=== PATIENT | female | born 1970 | race Caucasian/White ===

== ENCOUNTER 2020-01-11 09:36 | Emergency (ER) | payer OTHER, BC ==
[2020-01-11] MEDS ORDERED: Albuterol/Ipratropium 3.0-0.5 MG/3 ML Neb Soln NEB PRN (10:28)
--- NOTE | 2020-01-11 10:32 | EDM.PDOC ---
ED HPI GENERAL MEDICAL PROBLEM - General Chief Complaint: Respiratory Problem Stated Complaint: SOB/HAD COVID A MONTH AGO Time Seen by Provider: 01/11/20 10:17 Source of Information: Reports: Patient History Limitations: Reports: No Limitations - History of Present Illness INITIAL COMMENTS - FREE TEXT/NARRATIVE: 49-year-old female presents to the ED due to worsening shortness of breath with audible wheezing over the last 3 to 4 days. She reports that she proved to be Covid positive on 11 December. This to be a month ago today. She had mild form of illness with minimal cough at that time. Minimal sore throat. Never did develop any diarrhea. Had mild anorexia. 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 He has been tested almost twice weekly due to the outbreak of the virus where she is employed and is proved to be Covid negative. Her also had COVID-19 the same time she did. Denies any sputum production. Short of breath on minimal exertion for the last 2 days. Feels like she is getting worse. No improvement with handheld albuterol neb treatments all day yesterday. Onset: Gradual Onset Date: 01/09/20 Duration: Day(s):, Getting Worse Location: Reports: Chest (As of breath with audible wheezing.) Quality: Reports: Other Severity: Moderate Improves with: Reports: Rest Worsens with: Reports: Other (Apnea with audible wheezing) Context: Reports: Other. Denies: Activity, Exercise ( worse with minimal exertion.), Lifting, Sick Contact, Trauma Associated Symptoms: Reports: Malaise, Shortness of Breath. 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) (Handheld albuterol treatments with minimal relief.) - Related Data Allergies Allergy/AdvReac Type Severity Reaction Status Date / Time No Known Allergies Allergy Verified 01/11/20 10:46 Home Meds: Home Meds ALPRAZolam [Xanax] 0.25 mg PO ASDIRECTED PRN 01/11/20 [History] Furosemide [Lasix] 20 mg PO DAILY #14 tab 01/11/20 [Rx] Loratadine [Claritin] 25 mg PO DAILY 01/11/20 [History] Metoprolol Succinate [Toprol XL] 25 mg PO DAILY 01/11/20 [History] Omeprazole 40 mg PO DAILY 01/11/20 [History] Topiramate [Topamax] 50 mg PO DAILY 01/11/20 [History] buPROPion HCL [Wellbutrin Xl] 300 mg PO DAILY 01/11/20 [History] predniSONE [Prednisone] 20 mg PO BID #15 tablet 01/11/20 [Rx] Past Medical History HEENT History: Reports: Impaired Vision Other HEENT History: wears glasses 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 Denies: Fever, Chills HEENT: Reports: No Symptoms Respiratory: Reports: Shortness of Breath, Wheezing. Denies: Pleuritic Chest Pain, Cough Cardiovascular: Reports: Dyspnea on Exertion. Denies: Chest Pain (Audible wheezing.), Blood Pressure Problem, Claudication, Edema, Orthopnea, Other Endocrine: Reports: Fatigue GI/Abdominal: Reports: No Symptoms : Reports: No Symptoms Musculoskeletal: Reports: No Symptoms Skin: Reports: No Symptoms Neurological: Reports: No Symptoms Psychiatric: Reports: No Symptoms Hematologic/Lymphatic: Reports: No Symptoms Immunologic: Reports: No Symptoms ED EXAM, GENERAL - Physical Exam Exam: See Below Exam Limited By: No Limitations General Appearance: Alert, WD/WN, No Apparent Distress, Other (Temperature is 36.2 and she does feel afebrile on exam. Heart rate 72 and sinus respiratory to 20 with O2 sats of only 93% room air. BP is 145/78.) Eye Exam: Bilateral Eye: Normal Inspection, PERRL Throat/Mouth: Normal Inspection, Normal Lips, Normal Teeth, Normal Oropharynx Head: Atraumatic, Normocephalic Neck: Normal Inspection, Supple, Non-Tender, Full Range of Motion. No: Lymphadenopathy (L), Lymphadenopathy (R) Respiratory/Chest: No Accessory Muscle Use, Respiratory Distress (Tachypnea at r est.), Decreased Breath Sounds (Minimally decreased breath sounds to lung bases.), Wheezing (Diffuse wheezing throughout all lung jim.). No: Lungs Clear, Normal Breath Sounds Cardiovascular: Normal Peripheral Pulses, Regular Rate, Rhythm, No Edema, No Gallop, No Murmur, No Rub Peripheral Pulses: 2+: Posterior Tibial (L), Posterior Tibial (R), Dorsalis Pedis (L), Dorsalis Pedis (R), 3+: Carotid (L), Carotid (R) GI/Abdominal: Normal Bowel Sounds, Soft, Non-Tender, No Organomegaly, No Abnormal Bruit, No Mass, Pelvis Stable Back Exam: Normal Inspection, Full Range of Motion. No: CVA Tenderness (L), CVA Tenderness (R) Extremities: Normal Inspection, Normal Range of Motion, Non-Tender, No Pedal Edema Neurological: Alert, Oriented, CN II-XII Intact, Normal Cognition Psychiatric: Normal Affect, Normal Mood Skin Exam: Warm, Dry, Intact, Normal Color, No Rash #1 Interpretation EKG Date: 01/11/20 Time: 10:36 Rhythm: NSR Rate (Beats/Min): 70 (Occasional PACs.) Storden: Normal P-Wave: Present QRS: Other (There is a Q wave in lead V1 and V2. Consider possible old anteroseptal myocardial infarction. Mildly decreased voltage limb leads.) ST-T: Other (T wave flattening in V2 nonspecific finding) QT: Normal EKG Interpretation Comments: Abnormal ECG Course - Vital Signs Last Recorded V/S: Last Vital Signs Temp 36.2 C 01/11/20 12:40 Pulse 80 01/11/20 12:40 Resp 20 01/11/20 12:40 BP 126/83 01/11/20 12:40 Pulse Ox 98 01/11/20 12:40 - Orders/Labs/Meds Orders: Active Orders 24 hr Category Date Time Status Chest 1V Frontal [CR] Stat Exams 01/11/20 10:27 Taken Labs: Laboratory Tests 01/11/20 01/11/20 01/11/20 Range/Units 10:50 10:50 10:50 WBC 8.28 (3.98-10.04) K/mm3 RBC 4.52 (3.98-5.22) M/mm3 Hgb 12.0 (11.2-15.7) gm/dl Hct 38.5 (34.1-44.9) % MCV 85.2 (79.4-94.8) fl MCH 26.5 (25.6-32.2) pg MCHC 31.2 L (32.2-35.5) g/dl RDW Std Deviation 48.4 H (36.4-46.3) fL Plt Count 363 (182-369) K/mm3 MPV 10.3 (9.4-12.3) fl Neut % (Auto) 70.5 (34.0-71.1) % Lymph % (Auto) 17.3 L (19.3-51.7) % [place] % (Auto) 9.9 (4.7-12.5) % Eos % (Auto) 1.9 (0.7-5.8) Baso % (Auto) 0.2 (0.1-1.2) % Neut # (Auto) 5.83 (1.56-6.13) K/mm3 Lymph # (Auto) 1.43 (1.18-3.74) K/mm3 [place] # (Auto) 0.82 H (0.24-0.36) K/mm3 Eos # (Auto) 0.16 (0.04-0.36) K/mm3 Baso # (Auto) 0.02 (0.01-0.08) K/mm3 D-Dimer, Quantitative (0.19-0.50) mg/L Sodium 138 (136-145) mEq/L Potassium 4.0 (3.5-5.1) mEq/L Chloride 105 (98-107) mEq/L Carbon Dioxide 22 (21-32) mEq/L Anion Gap 15.0 (5-15) BUN 11 (7-18) mg/dL Creatinine 0.8 (0.55-1.02) mg/dL Est Cr Clr Drug Dosing 76.54 mL/min Estimated GFR (MDRD) > 60 (>60) mL/min BUN/Creatinine Ratio 13.8 L (14-18) Glucose 84 (74-106) mg/dL Calcium 8.9 (8.5-10.1) mg/dL Magnesium 1.8 (1.8-2.4) mg/dl Total Bilirubin 0.3 (0.2-1.0) mg/dL AST 14 L (15-37) U/L ALT 20 (14-59) U/L Alkaline Phosphatase 63 (46-116) U/L Troponin I < 0.017 (0.00-0.056) ng/mL C-Reactive Protein 2.7 H* (<1.0) mg/dL NT-Pro-B Natriuret Pep 325 H (0-125) pg/mL Total Protein 7.0 (6.4-8.2) g/dl Albumin 3.3 L (3.4-5.0) g/dl Globulin 3.7 gm/dL Albumin/Globulin Ratio 0.9 L (1-2) 01/11/20 Range/Units 10:50 WBC (3.98-10.04) K/mm3 RBC (3.98-5.22) M/mm3 Hgb (11.2-15.7) gm/dl Hct (34.1-44.9) % MCV (79.4-94.8) fl MCH (25.6-32.2) pg MCHC (32.2-35.5) g/dl RDW Std Deviation (36.4-46.3) fL Plt Count (182-369) K/mm3 MPV (9.4-12.3) fl Neut % (Auto) (34.0-71.1) % Lymph % (Auto) (19.3-51.7) % Stan[place]aus % (Auto) (4.7-12.5) % Eos % (Auto) (0.7-5.8) Baso % (Auto) (0.1-1.2) % Neut # (Auto) (1.56-6.13) K/mm3 Lymph # (Auto) (1.18-3.74) K/mm3 [place] # (Auto) (0.24-0.36) K/mm3 Eos # (Auto) (0.04-0.36) K/mm3 Baso # (Auto) (0.01-0.08) K/mm3 D-Dimer, Quantitative 0.24 (0.19-0.50) mg/L Sodium (136-145) mEq/L Potassium (3.5-5.1) mEq/L Chloride (98-107) mEq/L Carbon Dioxide (21-32) mEq/L Anion Gap (5-15) BUN (7-18) mg/dL Creatinine (0.55-1.02) mg/dL Est Cr Clr Drug Dosing mL/min Estimated GFR (MDRD) (>60) mL/min BUN/Creatinine Ratio (14-18) Glucose (74-106) mg/dL Calcium (8.5-10.1) mg/dL Magnesium (1.8-2.4) mg/dl Total Bilirubin (0.2-1.0) mg/dL AST (15-37) U/L ALT (14-59) U/L Alkaline Phosphatase (46-116) U/L Troponin I (0.00-0.056) ng/mL C-Reactive Protein (<1.0) mg/dL NT-Pro-B Natriuret Pep (0-125) pg/mL Total Protein (6.4-8.2) g/dl Albumin (3.4-5.0) g/dl Globulin gm/dL Albumin/Globulin Ratio (1-2) Meds: Medications Discontinued Medications Generic Name Dose Route Start Last Admin Trade Name Freq PRN Reason Stop Dose Admin Albuterol/Ipratropium 3 ml 01/11/20 10:28 01/11/20 11:10 Duoneb 3.0-0.5 Mg/3 Ml NEB 3 ml Q4H PRN Administration Shortness Of Breath/wheezing Prednisone 30 mg 01/11/20 11:33 01/11/20 12:34 Prednisone PO 01/11/20 11:34 30 mg ONETIME ONE Administration - Radiology Interpretation Free Text/Narrative:: 49-year-old female presents to the ED with a fairly acute onset of wheezing and shortness of breath over the last 72 hours. Patient had COVID-19 illness a month ago today and illness by history appear to be quite mild. She had minimal cough at that time with no wheezing. She minimal sore throat. She did lose her appetite for a period of time. Denies any diarrhea. Mild associated headache. She has been tested twice weekly since returning to work and has been Covid negative. Denies any recent fever or chills. Denies any productive cough. No relief with handheld metered-dose inhaler of albuterol. Is diffuse wheezing throughout all lung jim. O2 sats are 93% room air. Plan chest x- ray to be done routine labs to be done. DuoNeb will be given. - Re-Assessments/Exams Free Text/Narrative Re-Assessment/Exam: 01/11/20 11:01 Chest x-ray done portably reveals prominence of both pulmonary arteries likely due to portable technique. The lungs are otherwise clear. Cardiac silhouette is normal. There is no pleural effusion or pneumothorax. 01/11/20 11:26 White count is 8.28. Differential shows 70.5% neutrophils. Hemoglobin is 12.0 with hematocrit of 38.5. Platelet count is normal at 363,000. 01/11/20 11:32 Patient reports very little improvement of wheezing with DuoNeb inhalational treatment. I am going to give her first dose of steroid orally in the ED prednisone 30 mg by mouth. Still awaiting the CMP and BNP. 01/11/20 11:56 Sodium is 138 with a potassium of 4.0 chloride is 105 with a bicarb of 22. Anion gap is 15.0 BUN is 11 with a creatinine of 0.8. GFR is greater than 60. Glucose is 84 calcium is 8.9. Magnesium 1.8. Liver function normal troponin I less than 0.017 C-reactive protein mildly elevated at 2.7. BNP is mildly elevated at 325 total protein 7.0 albumin 3.3. D-dimer is reportedly normal at 0.24. Patient remains wheezy throughout all lung jim on examination. Patient is going to be discharged on prednisone 20 mg twice daily for 5 days and then once in the morning for another 5 days. Due to her mildly elevated BNP and potential for fluid retention with steroids I will also place her on Lasix 20 mg once a day for the next 14 days. Note given to excuse her from work for the next 3 days due to dyspnea on minimal exertion. She appears to have a post over 19 inflammation of her bronchial tubes. Has an albuterol inhaler at home which she will use 2 puffs every 3 hours as needed. Departure - Departure Time of Disposition: 12:14 Disposition: Home, Self-Care 01 Condition: Fair Clinical Impression: Upper respiratory tract infection due to COVID-19 virus Asthma Qualifiers: Asthma severity: moderate Asthma persistence: persistent Asthma complication type: unspecified Qualified Code(s): J45.40 - Moderate persistent asthma, uncomplicated - Discharge Information *PRESCRIPTION DRUG MONITORING PROGRAM REVIEWED*: Not Applicable *COPY OF PRESCRIPTION DRUG MONITORING REPORT IN PATIENT MANINDER: Not Applicable Prescriptions: Furosemide [Lasix] 20 mg PO DAILY #14 tab predniSONE [Prednisone] 20 mg PO BID #15 tablet Instructions: Upper Respiratory Infection, Adult, Asthma, Adult, [id number] Referrals: Mireya Arriaza, GUEST RELATIONS AGENT [Primary Care Provider] - Forms: ED Department Discharge, ED Return to Work/School Form Additional Instructions: Evaluation in the emergency room today in regards to development of shortness of breath associated with audible wheezing. No history of asthma. History of COVID-19 illness approximately 1 month ago which by history was considered fairly mild form of the illness. Evaluation reveals O2 sats of 93% primarily on room air and they will decrease with exertion. Chest x-ray was negative for any signs of pneumonia. Lab tests reveal there is a mild amount of increased fluid accumulation with BNP of 325 and normal should be 125. The fluid itself may be contributing to wheezing. You got very little relief from albuterol inhaler at home and DuoNeb here in the ED. Treatment will be prednisone 20 mg twice daily for the next 5 days then once daily in the morning for another 5 days. You received your first dose of prednisone in the emergency room. Second dose should be 20 mg tablet after supper tonight. You may continue use your albuterol inhaler for relief of asthma symptoms. Suggest Lasix 20 mg once daily every morning for the next 2 weeks. Should take one tablet when you get home this afternoon. Off work for the next 72 hours or 3 days due to current illness. Sepsis Event Note (ED) - Evaluation Sepsis Screening Result: No Definite Risk - Focused Exam Vital Signs: Vital Signs Temp Pulse Resp BP Pulse Ox Pulse Ox 01/11/20 12:40 36.2 C 80 20 126/83 98 01/11/20 11:10 93 L 01/11/20 09:56 36.2 C 72 20 145/78 H 93 L - My Orders Last 24 Hours: My Active Orders 01/11/20 10:27 Chest 1V Frontal [CR] Stat - Assessment/Plan Last 24 Hours: My Active Orders 01/11/20 10:27 Chest 1V Frontal [CR] Stat
[2020-01-11] MEDS ORDERED: predniSONE 20 MG Tab PO ONE (11:33)
--- NOTE | 2020-01-13 15:15 | CR ---
PROCEDURE INFORMATION: Exam: XR Chest, 1 View Exam date and time: 01/11/2020 10:32 AM Age: 49 years old Clinical indication: Cough and dyspnea and wheezing; Patient HX: Dyspnea with diffused wheezing onset this week, recent negative covid test, 1 month prior tested positive for covid TECHNIQUE: Imaging protocol: XR of the chest Views: 1 view. COMPARISON: No relevant prior studies available. FINDINGS: Lungs: Unremarkable. No consolidation. Pleural space: Unremarkable. No pleural effusion. No pneumothorax. Heart/Mediastinum: Unremarkable. No cardiomegaly. 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 IMPRESSION: No acute findings. Thank you for allowing us to participate in the care of your patient. Dictated and Authenticated by: Lainey Camejo MD 01/11/2020 12:11 PM Central Time ([place] & [place]) [place]
== END 2020-01-11 12:40 | disposition home or self-care (01) ==
LOC: JD.ED 09:36
DX: U07.1 COVID-19 (principal); J45.40 Moderate persistent asthma, uncomplicated; J06.9 Acute upper respiratory infection, unspecified; F41.9 Anxiety disorder, unspecified; Z87.891 Personal history of nicotine dependence; Z79.899 Other long term (current) drug therapy
CPT/HCPCS: 36415; 71045; 80053; 83735; 83880; 84484; 85025; 85379; 86140; 93005; 94640; 99285; J7512; 93010; 99284; J7620-GY